=== PATIENT | female | born 1975 | race Caucasian/White ===

== ENCOUNTER → 2019-11-22 | Outpatient (CLI) | payer BC ==
--- NOTE | 2019-11-22 16:48 | Diagnostic Imaging Report ---
Indication: Bilateral upper extremity paresthesia Cervical spine, AP and lateral views AP and lateral views of the cervical spine show disc space narrowing at C5-C6. The other intervertebral disc spaces are well-preserved. Alignment is normal. There is no fracture or prevertebral soft tissue swelling. IMPRESSION: Degenerative disc changes at C5-C6. Dictated by: Dictated on workstation # [id number]
== END ==
LOC: RAD FS 16:04
PROVIDERS: ATTEND Nurse Practitioner Family
DX: M50.322 Other cervical disc degeneration at C5-C6 level (principal); R20.0 Anesthesia of skin; R20.2 Paresthesia of skin
CPT/HCPCS: 72050